=== PATIENT | male | born 1940 | race Caucasian/White ===

== ENCOUNTER 2020-03-22 14:34 | Inpatient (IN) ==
[2020-03-22 15:15] LABS: Basophils % 0.4 % (0.0-0.8); Eosinophils # 0.2 10*3/uL (0.0-0.87); Eosinophils % 4.5 % (0.00-10.9); Hematocrit 40.2 VOL% (42.0-52.0); Hemoglobin 12.2 GM/DL (14.0-18.0); Immature Granulocytes % 0.4 %; Immature Granulocytes Absolute 0.02 #; Lymphocytes # 0.7 10*3/uL (1.4-4.0); Mean Corpuscular HGB Conc 30.3 GM/DL (32-36); Mean Corpuscular Volume 98.3 FL (87-102); Mean Platelet Volume 12.6 FL (9.6-12.0); Monocytes % 8.3 % (1.7-12.7); Neutrophils % 72.4 % (38.7-73.9); Platelet Count 76 T/CUMM (130-400); Red Blood Count 4.09 MC/CUMM (3.8-5.5); Red Cell Distribution Width 13.3 % (9.3-17.3); White Blood Count 4.9 T/CUMM (4-12)
[2020-03-22 15:24] LABS: INR 1.1; PT Patient Result 11.4 SECS (9.8-11.9)
[2020-03-22 15:33] LABS: Albumin 3.8 G/DL (3.4-5.0); Bilirubin,Total 0.8 MG/DL (0.2-1.0); Calcium 9.3 MG/DL (8.5-10.1); Osmolality,Calculated 289.1 MOS/KG (273-304); Total Protein 6.8 G/DL (6.4-8.3)
[2020-03-22] MEDS ORDERED: ACETAMINOPHEN 325 MG TABLET PO PRN (16:40)
[2020-03-22] MEDS ORDERED: ONDANSETRON 4 MG/2 ML VIAL IV PRN (16:40)
[2020-03-22] MEDS ORDERED: ALBUTEROL 2.5 MG/3 ML NEB RESP TX PRN (16:42)
[2020-03-22] MEDS: SIMVASTATIN 80 MG TABLET PO SCH (21:40)
[2020-03-22] MEDS: SERTRALINE 50 MG TABLET PO SCH (21:40)
[2020-03-22] MEDS: carvediloL 6.25 MG TABLET PO SCH (21:40)
[2020-03-22] MEDS: DOCUSATE SODIUM 100 MG CAPSULE PO SCH (21:40)
[2020-03-22] MEDS: amLODIPine 10 MG TABLET PO SCH (21:40)
[2020-03-22] MEDS: ASPIRIN EC 325 MG TABLET PO SCH (21:40)
[2020-03-22] MEDS: CARBIDOPA/LEVODOPA 25-100 MG TABLET PO SCH (21:41)
[2020-03-23 06:41] LABS: Basophils % 0.7 % (0.0-0.8); Eosinophils # 0.1 10*3/uL (0.0-0.87); Eosinophils % 3.3 % (0.00-10.9); Hematocrit 39.1 VOL% (42.0-52.0); Immature Granulocytes % 0.5 %; Immature Granulocytes Absolute 0.02 #; Lymphocytes # 0.8 10*3/uL (1.4-4.0); Lymphocytes % 19.4 % (21.2-54.2); Mean Corpuscular HGB Conc 30.7 GM/DL (32-36); Mean Corpuscular Volume 97.5 FL (87-102); Mean Platelet Volume 12.8 FL (9.6-12.0); Monocytes % 9.7 % (1.7-12.7); Neutrophils % 66.4 % (38.7-73.9); Platelet Count 60 T/CUMM (130-400); Red Blood Count 4.01 MC/CUMM (3.8-5.5); Red Cell Distribution Width 13.2 % (9.3-17.3); White Blood Count 4.2 T/CUMM (4-12)
[2020-03-23 06:59] LABS: Albumin 3.5 G/DL (3.4-5.0); Calcium 9.7 MG/DL (8.5-10.1); Osmolality,Calculated 288.3 MOS/KG (273-304); Potassium 4.7 MMOL/L (3.5-5.1); Total Protein 6.6 G/DL (6.4-8.3)
[2020-03-23] MEDS: FUROSEMIDE 20 MG TABLET PO SCH (08:51)
[2020-03-23] MEDS: CLOPIDOGREL 75 MG TABLET PO SCH (08:51)
[2020-03-23] MEDS: DOCUSATE SODIUM 100 MG CAPSULE PO SCH ×3 (08:51→20:56)
[2020-03-23] MEDS: carvediloL 6.25 MG TABLET PO SCH (08:51)
[2020-03-23] MEDS: PANTOPRAZOLE 40 MG TABLET PO SCH (08:51)
[2020-03-23] MEDS ORDERED: PANTOPRAZOLE 40 MG TABLET PO SCH (09:00)
[2020-03-23] MEDS: ENALAPRIL 20 MG TABLET PO SCH (09:05)
[2020-03-23] MEDS: SIMVASTATIN 80 MG TABLET PO SCH (20:56)
[2020-03-23] MEDS: SERTRALINE 50 MG TABLET PO SCH (20:56)
[2020-03-23] MEDS: amLODIPine 10 MG TABLET PO SCH (20:56)
[2020-03-23] MEDS: CARBIDOPA/LEVODOPA 25-100 MG TABLET PO SCH (20:56)
[2020-03-23] MEDS: ASPIRIN EC 325 MG TABLET PO SCH (20:56)
[2020-03-24] MEDS: PANTOPRAZOLE 40 MG TABLET PO SCH (08:40)
[2020-03-24] MEDS: DOCUSATE SODIUM 100 MG CAPSULE PO SCH ×2 (08:40→20:35)
[2020-03-24] MEDS: FUROSEMIDE 20 MG TABLET PO SCH (08:40)
[2020-03-24] MEDS: CLOPIDOGREL 75 MG TABLET PO SCH (08:40)
[2020-03-24] MEDS: ENALAPRIL 20 MG TABLET PO SCH (08:40)
[2020-03-24] MEDS ORDERED: CYANOCOBALAMIN 1000 MCG/1 ML VIAL IM SCH (09:00)
[2020-03-24] MEDS: SERTRALINE 50 MG TABLET PO SCH (20:35)
[2020-03-24] MEDS: ASPIRIN EC 325 MG TABLET PO SCH (20:35)
[2020-03-24] MEDS: SIMVASTATIN 80 MG TABLET PO SCH (20:35)
[2020-03-24] MEDS: CARBIDOPA/LEVODOPA 25-100 MG TABLET PO SCH (20:35)
[2020-03-24] MEDS: amLODIPine 10 MG TABLET PO SCH (20:35)
[2020-03-25 05:48] LABS: Basophils % 0.4 % (0.0-0.8); Eosinophils # 0.2 10*3/uL (0.0-0.87); Eosinophils % 4.4 % (0.00-10.9); Hematocrit 39.3 VOL% (42.0-52.0); Immature Granulocytes % 0.4 %; Immature Granulocytes Absolute 0.02 #; Lymphocytes % 19.1 % (21.2-54.2); Mean Corpuscular HGB Conc 30.5 GM/DL (32-36); Mean Corpuscular Volume 98.3 FL (87-102); Mean Platelet Volume 12.5 FL (9.6-12.0); Monocytes % 8.7 % (1.7-12.7); Platelet Count 68 T/CUMM (130-400); Red Cell Distribution Width 13.4 % (9.3-17.3)
[2020-03-25 06:08] LABS: Calcium 9.4 MG/DL (8.5-10.1); Osmolality,Calculated 283.4 MOS/KG (273-304)
[2020-03-25 06:20] LABS: Free T4 (Free Thyroxine) 0.85 NG/DL (0.76-1.46); Thyroid Stimulating Hormone 1.52 uIU/ml (0.358-3.74)
[2020-03-25 08:17] VITALS: BP 137/81
[2020-03-25] MEDS: DOCUSATE SODIUM 100 MG CAPSULE PO SCH (09:16)
[2020-03-25] MEDS: CLOPIDOGREL 75 MG TABLET PO SCH (09:16)
[2020-03-25] MEDS: ENALAPRIL 20 MG TABLET PO SCH (09:16)
[2020-03-25] MEDS: PANTOPRAZOLE 40 MG TABLET PO SCH (09:16)
[2020-03-25] MEDS: FUROSEMIDE 20 MG TABLET PO SCH (09:17)
== END 2020-03-25 11:35 | disposition home or self-care (01) | DRG 309 ==
LOC: N.ED 14:34 → N.EDINP 14:34 → N.TELEN 18:19
PROVIDERS: ADMIT Internal Medicine; ATTEND Internal Medicine

== ENCOUNTER 2020-04-04 17:51 | Inpatient (IN) ==
[2020-04-04 18:44] LABS: PT Patient Result 11.1 SECS (9.8-11.9)
[2020-04-04 18:47] LABS: Basophils % 0.5 % (0.0-0.8); Eosinophils # 0.1 10*3/uL (0.0-0.87); Eosinophils % 1.4 % (0.00-10.9); Hematocrit 39.2 VOL% (42.0-52.0); Hemoglobin 12.2 GM/DL (14.0-18.0); Immature Granulocytes % 0.4 %; Immature Granulocytes Absolute 0.02 #; Lymphocytes # 0.5 10*3/uL (1.4-4.0); Lymphocytes % 8.4 % (21.2-54.2); Mean Corpuscular HGB Conc 31.1 GM/DL (32-36); Mean Corpuscular Volume 95.1 FL (87-102); Mean Platelet Volume 13.1 FL (9.6-12.0); Monocytes % 6.3 % (1.7-12.7); Platelet Count 89 T/CUMM (130-400); Red Blood Count 4.12 MC/CUMM (3.8-5.5); Red Cell Distribution Width 13.3 % (9.3-17.3); White Blood Count 5.6 T/CUMM (4-12)
[2020-04-04 18:56] LABS: Albumin 3.5 G/DL (3.4-5.0); Bilirubin,Total 0.7 MG/DL (0.2-1.0); Calcium 9.6 MG/DL (8.5-10.1); Osmolality,Calculated 284.4 MOS/KG (273-304); Potassium 5.4 MMOL/L (3.5-5.1); Total Protein 6.9 G/DL (6.4-8.3)
[2020-04-04] MEDS ORDERED: ONDANSETRON 4 MG/2 ML VIAL IV PRN (20:42)
[2020-04-04] MEDS: DOCUSATE SODIUM 100 MG CAPSULE PO SCH (23:26)
[2020-04-05] MEDS: ACETAMINOPHEN 325 MG TABLET PO PRN ×2 (01:44→20:23)
[2020-04-05 02:46] LABS: Basophils % 0.4 % (0.0-0.8); Eosinophils # 0.1 10*3/uL (0.0-0.87); Eosinophils % 2.1 % (0.00-10.9); Hematocrit 35.5 VOL% (42.0-52.0); Hemoglobin 11.2 GM/DL (14.0-18.0); Immature Granulocytes % 0.6 %; Immature Granulocytes Absolute 0.03 #; Lymphocytes # 0.7 10*3/uL (1.4-4.0); Lymphocytes % 12.9 % (21.2-54.2); Mean Corpuscular HGB Conc 31.5 GM/DL (32-36); Mean Corpuscular Volume 95.2 FL (87-102); Mean Platelet Volume 11.9 FL (9.6-12.0); Monocytes % 9.7 % (1.7-12.7); Neutrophils % 74.3 % (38.7-73.9); Platelet Count 82 T/CUMM (130-400); Red Blood Count 3.73 MC/CUMM (3.8-5.5); Red Cell Distribution Width 13.2 % (9.3-17.3); White Blood Count 5.4 T/CUMM (4-12)
[2020-04-05 03:01] LABS: Albumin 3.3 G/DL (3.4-5.0); Bilirubin,Total 0.7 MG/DL (0.2-1.0); Calcium 9.3 MG/DL (8.5-10.1); Osmolality,Calculated 290.1 MOS/KG (273-304); Potassium 4.4 MMOL/L (3.5-5.1); Total Protein 6.5 G/DL (6.4-8.3)
[2020-04-05] MEDS: DOCUSATE SODIUM 100 MG CAPSULE PO SCH ×2 (09:00→20:20)
[2020-04-05] MEDS ORDERED: NITROGLYCERIN SL 0.4 MG TABLET SL PRN (09:58)
[2020-04-05] MEDS: PANTOPRAZOLE 40 MG TABLET PO SCH (13:25)
[2020-04-05] MEDS: HYDROXYCHLOROQUINE 200 MG TABLET PO SCH (16:20)
[2020-04-05] MEDS: TAMSULOSIN 0.4 MG CAPSULE PO SCH (20:20)
[2020-04-05] MEDS: amLODIPine 10 MG TABLET PO SCH (20:21)
[2020-04-05] MEDS: CARBIDOPA/LEVODOPA 25-100 MG TABLET PO SCH (20:21)
[2020-04-05] MEDS: MAGNESIUM CHLORIDE 64 MG TABLET PO SCH (20:22)
[2020-04-05] MEDS: POTASSIUM CITRATE 10 MEQ TABLET PO SCH (20:22)
[2020-04-05] MEDS: SIMVASTATIN 80 MG TABLET PO SCH (20:22)
[2020-04-05] MEDS: SERTRALINE 50 MG TABLET PO SCH (20:23)
[2020-04-05] MEDS: diphenhydrAMINE CAP 25 MG CAPSULE PO PRN (20:25)
[2020-04-05] MEDS: NON-FORMULARY MEDICATION (Glucosam-Chon-Msm1-C-Mang-Bosw [Osteo Bi-Flex Triple Strength] 7 PO SCH (21:43)
[2020-04-06] MEDS: HYDROXYCHLOROQUINE 200 MG TABLET PO SCH ×2 (10:16→16:39)
[2020-04-06] MEDS: FINASTERIDE 5 MG TABLET PO SCH (10:17)
[2020-04-06] MEDS: DOCUSATE SODIUM 100 MG CAPSULE PO SCH ×2 (10:17→21:22)
[2020-04-06] MEDS: FUROSEMIDE 20 MG TABLET PO SCH (10:17)
[2020-04-06] MEDS: POTASSIUM CITRATE 10 MEQ TABLET PO SCH ×2 (10:17→21:24)
[2020-04-06] MEDS: TAMSULOSIN 0.4 MG CAPSULE PO SCH ×2 (10:17→21:22)
[2020-04-06] MEDS: ENALAPRIL 20 MG TABLET PO SCH (10:17)
[2020-04-06] MEDS: MAGNESIUM CHLORIDE 64 MG TABLET PO SCH ×2 (10:17→21:24)
[2020-04-06] MEDS: PANTOPRAZOLE 40 MG TABLET PO SCH ×2 (10:18→10:21)
[2020-04-06] MEDS: ASCORBIC ACID 500 MG TABLET PO SCH (10:18)
[2020-04-06] MEDS: [UNRECOGNIZED DRUG - OTHER] PO SCH (10:21)
[2020-04-06] MEDS: NON-FORMULARY MEDICATION (Glucosam-Chon-Msm1-C-Mang-Bosw [Osteo Bi-Flex Triple Strength] 7 PO SCH ×2 (10:21→21:23)
[2020-04-06] MEDS: amLODIPine 10 MG TABLET PO SCH (21:23)
[2020-04-06] MEDS: SERTRALINE 50 MG TABLET PO SCH (21:24)
[2020-04-06] MEDS: SIMVASTATIN 80 MG TABLET PO SCH (21:24)
[2020-04-06] MEDS: CARBIDOPA/LEVODOPA 25-100 MG TABLET PO SCH (21:24)
[2020-04-06] MEDS: ACETAMINOPHEN 325 MG TABLET PO PRN (21:25)
[2020-04-06] MEDS: diphenhydrAMINE CAP 25 MG CAPSULE PO PRN (21:25)
[2020-04-07 05:53] LABS: Basophils % 0.5 % (0.0-0.8); Eosinophils # 0.2 10*3/uL (0.0-0.87); Hematocrit 36.1 VOL% (42.0-52.0); Hemoglobin 11.2 GM/DL (14.0-18.0); Immature Granulocytes % 0.5 %; Immature Granulocytes Absolute 0.02 #; Lymphocytes # 0.8 10*3/uL (1.4-4.0); Lymphocytes % 18.9 % (21.2-54.2); Mean Corpuscular Volume 96.8 FL (87-102); Mean Platelet Volume 12.2 FL (9.6-12.0); Monocytes % 8.2 % (1.7-12.7); Neutrophils % 66.9 % (38.7-73.9); Platelet Count 77 T/CUMM (130-400); Red Blood Count 3.73 MC/CUMM (3.8-5.5); Red Cell Distribution Width 13.5 % (9.3-17.3)
[2020-04-07 06:03] LABS: Calcium 9.8 MG/DL (8.5-10.1); Osmolality,Calculated 283.4 MOS/KG (273-304); Potassium 4.2 MMOL/L (3.5-5.1)
[2020-04-07 06:36] LABS: Platelet Estimate Decreased
[2020-04-07 06:37] LABS: Hypochromasia Slight
[2020-04-07] MEDS ORDERED: CYANOCOBALAMIN 1000 MCG/1 ML VIAL IM SCH (09:00)
[2020-04-07] MEDS: DOCUSATE SODIUM 100 MG CAPSULE PO SCH ×2 (11:23→21:56)
[2020-04-07] MEDS: FINASTERIDE 5 MG TABLET PO SCH (11:23)
[2020-04-07] MEDS: MAGNESIUM CHLORIDE 64 MG TABLET PO SCH ×3 (11:23→22:02)
[2020-04-07] MEDS: ASCORBIC ACID 500 MG TABLET PO SCH (11:24)
[2020-04-07] MEDS: ENALAPRIL 20 MG TABLET PO SCH (11:24)
[2020-04-07] MEDS: FUROSEMIDE 20 MG TABLET PO SCH (11:24)
[2020-04-07] MEDS: TAMSULOSIN 0.4 MG CAPSULE PO SCH ×2 (11:24→21:57)
[2020-04-07] MEDS: POTASSIUM CITRATE 10 MEQ TABLET PO SCH ×2 (11:25→21:58)
[2020-04-07] MEDS: HYDROXYCHLOROQUINE 200 MG TABLET PO SCH ×2 (11:25→16:17)
[2020-04-07] MEDS: PANTOPRAZOLE 40 MG TABLET PO SCH ×2 (11:25→11:48)
[2020-04-07] MEDS: [UNRECOGNIZED DRUG - OTHER] PO SCH (11:47)
[2020-04-07] MEDS: NON-FORMULARY MEDICATION (Glucosam-Chon-Msm1-C-Mang-Bosw [Osteo Bi-Flex Triple Strength] 7 PO SCH ×2 (11:47→21:57)
[2020-04-07] MEDS: ACETAMINOPHEN 325 MG TABLET PO PRN ×2 (14:05→21:56)
[2020-04-07] MEDS: SERTRALINE 50 MG TABLET PO SCH (21:56)
[2020-04-07] MEDS: amLODIPine 10 MG TABLET PO SCH (21:57)
[2020-04-07] MEDS: diphenhydrAMINE CAP 25 MG CAPSULE PO PRN (21:57)
[2020-04-07] MEDS: SIMVASTATIN 80 MG TABLET PO SCH (21:58)
[2020-04-07] MEDS: CARBIDOPA/LEVODOPA 25-100 MG TABLET PO SCH (21:58)
[2020-04-08 06:45] LABS: Basophils % 0.5 % (0.0-0.8); Eosinophils # 0.2 10*3/uL (0.0-0.87); Eosinophils % 3.6 % (0.00-10.9); Hematocrit 36.2 VOL% (42.0-52.0); Hemoglobin 11.4 GM/DL (14.0-18.0); Immature Granulocytes % 0.5 %; Immature Granulocytes Absolute 0.02 #; Lymphocytes # 0.7 10*3/uL (1.4-4.0); Lymphocytes % 16.7 % (21.2-54.2); Mean Corpuscular HGB Conc 31.5 GM/DL (32-36); Mean Corpuscular Volume 95.5 FL (87-102); Mean Platelet Volume 11.9 FL (9.6-12.0); Monocytes % 8.1 % (1.7-12.7); Neutrophils % 70.6 % (38.7-73.9); Platelet Count 73 T/CUMM (130-400); Red Blood Count 3.79 MC/CUMM (3.8-5.5); Red Cell Distribution Width 13.3 % (9.3-17.3); White Blood Count 4.4 T/CUMM (4-12)
[2020-04-08 07:08] LABS: Anisocytosis Slight; Platelet Estimate Decreased
[2020-04-08 07:09] LABS: Macrocytosis Slight
[2020-04-08 07:13] LABS: Calcium 9.3 MG/DL (8.5-10.1); Osmolality,Calculated 285.3 MOS/KG (273-304); Potassium 4.5 MMOL/L (3.5-5.1)
[2020-04-08] MEDS: MAGNESIUM CHLORIDE 64 MG TABLET PO SCH ×2 (09:18→20:42)
[2020-04-08] MEDS: HYDROXYCHLOROQUINE 200 MG TABLET PO SCH ×2 (09:18→16:09)
[2020-04-08] MEDS: ACETAMINOPHEN 325 MG TABLET PO PRN ×2 (09:19→20:42)
[2020-04-08] MEDS: ENALAPRIL 20 MG TABLET PO SCH (09:19)
[2020-04-08] MEDS: DOCUSATE SODIUM 100 MG CAPSULE PO SCH ×2 (09:19→20:43)
[2020-04-08] MEDS: ASCORBIC ACID 500 MG TABLET PO SCH (09:19)
[2020-04-08] MEDS: PANTOPRAZOLE 40 MG TABLET PO SCH ×2 (09:19→09:24)
[2020-04-08] MEDS: FUROSEMIDE 20 MG TABLET PO SCH (09:19)
[2020-04-08] MEDS: POTASSIUM CITRATE 10 MEQ TABLET PO SCH ×2 (09:19→20:43)
[2020-04-08] MEDS: FINASTERIDE 5 MG TABLET PO SCH (09:20)
[2020-04-08] MEDS: TAMSULOSIN 0.4 MG CAPSULE PO SCH ×2 (09:20→20:43)
[2020-04-08] MEDS: [UNRECOGNIZED DRUG - OTHER] PO SCH (09:24)
[2020-04-08] MEDS: NON-FORMULARY MEDICATION (Glucosam-Chon-Msm1-C-Mang-Bosw [Osteo Bi-Flex Triple Strength] 7 PO SCH ×2 (09:24→20:44)
[2020-04-08] MEDS: SERTRALINE 50 MG TABLET PO SCH (20:43)
[2020-04-08] MEDS: diphenhydrAMINE CAP 25 MG CAPSULE PO PRN (20:43)
[2020-04-08] MEDS: amLODIPine 10 MG TABLET PO SCH (20:43)
[2020-04-08] MEDS: SIMVASTATIN 80 MG TABLET PO SCH (20:43)
[2020-04-08] MEDS: CARBIDOPA/LEVODOPA 25-100 MG TABLET PO SCH (20:43)
[2020-04-09 05:37] LABS: Basophils % 0.6 % (0.0-0.8); Eosinophils # 0.2 10*3/uL (0.0-0.87); Eosinophils % 3.5 % (0.00-10.9); Hematocrit 35.9 VOL% (42.0-52.0); Immature Granulocytes % 0.4 %; Immature Granulocytes Absolute 0.02 #; Lymphocytes # 0.8 10*3/uL (1.4-4.0); Lymphocytes % 15.1 % (21.2-54.2); Mean Corpuscular HGB Conc 30.6 GM/DL (32-36); Mean Corpuscular Volume 96.8 FL (87-102); Mean Platelet Volume 12.5 FL (9.6-12.0); Monocytes % 8.6 % (1.7-12.7); Neutrophils % 71.8 % (38.7-73.9); Platelet Count 83 T/CUMM (130-400); Red Blood Count 3.71 MC/CUMM (3.8-5.5); Red Cell Distribution Width 13.3 % (9.3-17.3); White Blood Count 5.4 T/CUMM (4-12)
[2020-04-09 06:00] LABS: Calcium 10.1 MG/DL (8.5-10.1); Osmolality,Calculated 279.7 MOS/KG (273-304); Potassium 4.5 MMOL/L (3.5-5.1)
[2020-04-09] MEDS ORDERED: ceFAZolin 1,000 MG VIAL IRRIG ONE (06:00)
[2020-04-09] MEDS ORDERED: ceFAZolin 1,000 MG in SYRINGE 1 EACH IV ONE (06:00)
[2020-04-09 06:01] LABS: Anisocytosis 1+; Ovalocytes Few; Platelet Estimate Decreased
[2020-04-09 06:02] LABS: Macrocytosis Slight
[2020-04-09] MEDS ORDERED: fentaNYL 100 MCG/2 ML VIAL ONE (07:09)
[2020-04-09] MEDS ORDERED: ceFAZolin 1,000 MG VIAL ONE (07:22)
[2020-04-09] MEDS ORDERED: LIDOCAINE 1% 20 ML VIAL ONE (07:22)
[2020-04-09] MEDS ORDERED: TISSUE ADHESIVE 1 EACH APPLICATOR TOP ONE (07:22)
[2020-04-09] MEDS: ALBUTEROL 2.5 MG/3 ML NEB RESP TX PRN (10:23)
[2020-04-09] MEDS ORDERED: PHENYLEPHRINE 1 MG/10 ML SYRINGE IV ONE (10:39)
[2020-04-09] MEDS ORDERED: LIDOCAINE 2% 5 ML VIAL ONE (10:39)
[2020-04-09] MEDS ORDERED: propofoL 200 MG/20 ML VIAL IV ONE (10:39)
[2020-04-09] MEDS ORDERED: ONDANSETRON 4 MG/2 ML VIAL ONE (10:39)
[2020-04-09] MEDS ORDERED: SEVOFLURANE 1 UNIT/15 MINUTE INH ONE (10:40)
[2020-04-09] MEDS ORDERED: ETOMIDATE 40 MG/20 ML VIAL IV ONE (10:40)
[2020-04-09] MEDS: SODIUM CHLORIDE 0.9% 1,000 ML IV SCH ×2 (11:01→11:02)
[2020-04-09] MEDS: NON-FORMULARY MEDICATION (Glucosam-Chon-Msm1-C-Mang-Bosw [Osteo Bi-Flex Triple Strength] 7 PO SCH ×2 (11:02→20:46)
[2020-04-09] MEDS: [UNRECOGNIZED DRUG - OTHER] PO SCH (11:02)
[2020-04-09] MEDS: FINASTERIDE 5 MG TABLET PO SCH (11:10)
[2020-04-09] MEDS: TAMSULOSIN 0.4 MG CAPSULE PO SCH ×2 (11:10→20:45)
[2020-04-09] MEDS: ASCORBIC ACID 500 MG TABLET PO SCH (11:10)
[2020-04-09] MEDS: FUROSEMIDE 20 MG TABLET PO SCH (11:10)
[2020-04-09] MEDS: DOCUSATE SODIUM 100 MG CAPSULE PO SCH ×2 (11:10→20:41)
[2020-04-09] MEDS: POTASSIUM CITRATE 10 MEQ TABLET PO SCH ×2 (11:10→20:44)
[2020-04-09] MEDS: MAGNESIUM CHLORIDE 64 MG TABLET PO SCH ×2 (11:10→20:42)
[2020-04-09] MEDS: PANTOPRAZOLE 40 MG TABLET PO SCH ×2 (11:10→11:24)
[2020-04-09] MEDS: HYDROXYCHLOROQUINE 200 MG TABLET PO SCH ×2 (11:10→16:31)
[2020-04-09] MEDS: ENALAPRIL 20 MG TABLET PO SCH (11:11)
[2020-04-09] MEDS: SIMVASTATIN 80 MG TABLET PO SCH (20:42)
[2020-04-09] MEDS: SERTRALINE 50 MG TABLET PO SCH (20:42)
[2020-04-09] MEDS: CARBIDOPA/LEVODOPA 25-100 MG TABLET PO SCH (20:43)
[2020-04-09] MEDS: ACETAMINOPHEN 325 MG TABLET PO PRN (20:43)
[2020-04-09] MEDS: amLODIPine 10 MG TABLET PO SCH (20:43)
[2020-04-09] MEDS: diphenhydrAMINE CAP 25 MG CAPSULE PO PRN (20:45)
[2020-04-10 05:54] LABS: Basophils % 0.5 % (0.0-0.8); Eosinophils # 0.1 10*3/uL (0.0-0.87); Eosinophils % 1.7 % (0.00-10.9); Hematocrit 34.2 VOL% (42.0-52.0); Hemoglobin 10.6 GM/DL (14.0-18.0); Immature Granulocytes % 0.5 %; Immature Granulocytes Absolute 0.03 #; Lymphocytes # 0.6 10*3/uL (1.4-4.0); Lymphocytes % 9.7 % (21.2-54.2); Mean Corpuscular Volume 96.9 FL (87-102); Mean Platelet Volume 12.1 FL (9.6-12.0); Monocytes % 8.3 % (1.7-12.7); Neutrophils % 79.3 % (38.7-73.9); Platelet Count 68 T/CUMM (130-400); Red Blood Count 3.53 MC/CUMM (3.8-5.5); Red Cell Distribution Width 13.6 % (9.3-17.3); White Blood Count 6.6 T/CUMM (4-12)
[2020-04-10 06:13] LABS: Hypochromasia 1+; Microcytosis 1+; Platelet Estimate Decreased
[2020-04-10 06:29] LABS: Calcium 9.2 MG/DL (8.5-10.1); Osmolality,Calculated 283.4 MOS/KG (273-304); Potassium 4.6 MMOL/L (3.5-5.1)
[2020-04-10] MEDS: ALBUTEROL 2.5 MG/3 ML NEB RESP TX PRN (07:45)
[2020-04-10] MEDS ORDERED: ALBUTEROL/IPRATROPIUM 3 ML NEB RESP TX PRN (08:24)
[2020-04-10] MEDS: ALBUTEROL/IPRATROPIUM 3 ML NEB RESP TX SCH ×3 (08:39→19:31)
[2020-04-10] MEDS: methylPREDNISolone SOD SUC 40 MG/1 ML VIAL IV SCH ×2 (09:43→16:55)
[2020-04-10] MEDS: FINASTERIDE 5 MG TABLET PO SCH (09:44)
[2020-04-10] MEDS: FUROSEMIDE 40 MG TABLET PO SCH (09:44)
[2020-04-10] MEDS: TAMSULOSIN 0.4 MG CAPSULE PO SCH ×2 (09:44→21:09)
[2020-04-10] MEDS: ENALAPRIL 20 MG TABLET PO SCH (09:44)
[2020-04-10] MEDS: MAGNESIUM CHLORIDE 64 MG TABLET PO SCH ×2 (09:44→21:08)
[2020-04-10] MEDS: ASCORBIC ACID 500 MG TABLET PO SCH (09:44)
[2020-04-10] MEDS: POTASSIUM CITRATE 10 MEQ TABLET PO SCH ×2 (09:44→21:11)
[2020-04-10] MEDS: HYDROXYCHLOROQUINE 200 MG TABLET PO SCH ×2 (09:44→16:55)
[2020-04-10] MEDS: DOCUSATE SODIUM 100 MG CAPSULE PO SCH ×2 (09:45→21:08)
[2020-04-10] MEDS: PANTOPRAZOLE 40 MG TABLET PO SCH (09:45)
[2020-04-10] MEDS: SODIUM CHLORIDE 0.9% 1,000 ML IV SCH ×2 (10:02)
[2020-04-10] MEDS: NON-FORMULARY MEDICATION (Glucosam-Chon-Msm1-C-Mang-Bosw [Osteo Bi-Flex Triple Strength] 7 PO SCH ×2 (10:04→21:12)
[2020-04-10] MEDS: [UNRECOGNIZED DRUG - OTHER] PO SCH (10:04)
[2020-04-10] MEDS ORDERED: ASPIRIN EC 325 MG TABLET PO SCH (21:00)
[2020-04-10] MEDS: SIMVASTATIN 80 MG TABLET PO SCH (21:09)
[2020-04-10] MEDS: SERTRALINE 50 MG TABLET PO SCH (21:09)
[2020-04-10] MEDS: diphenhydrAMINE CAP 25 MG CAPSULE PO PRN (21:10)
[2020-04-10] MEDS: ACETAMINOPHEN 325 MG TABLET PO PRN (21:10)
[2020-04-10] MEDS: CARBIDOPA/LEVODOPA 25-100 MG TABLET PO SCH (21:11)
[2020-04-10] MEDS: amLODIPine 10 MG TABLET PO SCH (21:11)
[2020-04-11] MEDS: methylPREDNISolone SOD SUC 40 MG/1 ML VIAL IV SCH (00:07)
[2020-04-11] MEDS: SODIUM CHLORIDE 0.9% 1,000 ML IV SCH ×2 (05:11)
[2020-04-11 07:05] LABS: Alanine Aminotransferase < 6 U/L (16-61); Albumin 3.1 G/DL (3.4-5.0); Alkaline Phosphatase 54 U/L (45-117); Aspartate Amino Transferase 9 U/L (0-37); Blood Urea Nitrogen 33 MG/DL (7-18); Calcium 9.8 MG/DL (8.5-10.1); Carbon Dioxide 22 MMOL/L (21-32); Estimated Glom Filtration Rate 28 ML/MIN; Glucose 153 MG/DL (74-106); Osmolality,Calculated 288.4 MOS/KG (273-304); Potassium 5.4 MMOL/L (3.5-5.1); Sodium 140 MMOL/L (136-145); Total Protein 6.7 G/DL (6.4-8.3)
[2020-04-11] MEDS: ALBUTEROL/IPRATROPIUM 3 ML NEB RESP TX SCH (07:15)
[2020-04-11 07:30] VITALS: BP 130/70
[2020-04-11] MEDS: HYDROXYCHLOROQUINE 200 MG TABLET PO SCH (11:07)
[2020-04-11] MEDS: [UNRECOGNIZED DRUG - OTHER] PO SCH (11:15)
[2020-04-11] MEDS: PANTOPRAZOLE 40 MG TABLET PO SCH (11:15)
[2020-04-11] MEDS: FUROSEMIDE 40 MG TABLET PO SCH (11:15)
[2020-04-11] MEDS: MAGNESIUM CHLORIDE 64 MG TABLET PO SCH (11:15)
[2020-04-11] MEDS: TAMSULOSIN 0.4 MG CAPSULE PO SCH (11:15)
[2020-04-11] MEDS: NON-FORMULARY MEDICATION (Glucosam-Chon-Msm1-C-Mang-Bosw [Osteo Bi-Flex Triple Strength] 7 PO SCH (11:15)
[2020-04-11] MEDS: FINASTERIDE 5 MG TABLET PO SCH (11:15)
[2020-04-11] MEDS: ENALAPRIL 20 MG TABLET PO SCH (11:16)
[2020-04-11] MEDS: ASCORBIC ACID 500 MG TABLET PO SCH (11:16)
[2020-04-11] MEDS: POTASSIUM CITRATE 10 MEQ TABLET PO SCH (11:16)
[2020-04-11] MEDS: DOCUSATE SODIUM 100 MG CAPSULE PO SCH (11:17)
== END 2020-04-11 11:33 | disposition home or self-care (01) | DRG 227 ==
LOC: EDUNIT# → EDBD → N.ED 17:51 → N.EDINP 17:51 → N.TELES 21:54
PROVIDERS: ADMIT Internal Medicine; ATTEND Internal Medicine

== ENCOUNTER 2022-02-19 10:13 | Inpatient (IN) ==
[2022-02-19] MEDS ORDERED: ACETAMINOPHEN 325 MG TABLET PO PRN (10:55)
[2022-02-19] MEDS ORDERED: ONDANSETRON 4 MG/2 ML VIAL IV PRN (10:55)
[2022-02-19] MEDS ORDERED: FUROSEMIDE 40 MG/4 ML VIAL IV ONE (12:00)
[2022-02-19] MEDS ORDERED: LEVALBUTEROL 0.63 MG/3 ML NEB RESP TX PRN (13:09)
[2022-02-19] MEDS: ENOXAPARIN 30 MG/0.3 ML SYRINGE SUBCUT SCH (13:26)
[2022-02-19] MEDS ORDERED: NITROGLYCERIN SL 0.4 MG TABLET SL PRN (14:54)
[2022-02-19] MEDS: carvediloL 6.25 MG TABLET PO SCH (17:11)
[2022-02-19] MEDS: FUROSEMIDE 40 MG/4 ML VIAL IV SCH (17:11)
[2022-02-19] MEDS ORDERED: ALBUTEROL 2.5 MG/3 ML NEB RESP TX PRN (19:00)
[2022-02-19] MEDS: LEVALBUTEROL 0.63 MG/3 ML NEB RESP TX SCH (19:36)
[2022-02-19] MEDS: HYDROXYCHLOROQUINE 200 MG TABLET PO SCH (20:28)
[2022-02-19] MEDS: DOCUSATE SODIUM 100 MG CAPSULE PO SCH (20:28)
[2022-02-19] MEDS: TAMSULOSIN 0.4 MG CAPSULE PO SCH (20:28)
[2022-02-19] MEDS ORDERED: FINASTERIDE 5 MG TABLET PO SCH (21:00)
[2022-02-19] MEDS ORDERED: SERTRALINE 100 MG TABLET PO SCH (21:00)
[2022-02-19] MEDS ORDERED: CARBIDOPA/LEVODOPA 25-100 MG TABLET PO SCH (21:00)
[2022-02-20] MEDS: LEVALBUTEROL 0.63 MG/3 ML NEB RESP TX SCH ×3 (00:40→13:59)
[2022-02-20 04:27] LABS: Basophils % 0.3 % (0.0-0.8); Eosinophils # 0.2 10*3/uL (0.0-0.87); Eosinophils % 5.4 % (0.00-10.9); Hematocrit 32.5 VOL% (42.0-52.0); Hemoglobin 9.9 GM/DL (14.0-18.0); Immature Granulocytes % 0.5 %; Immature Granulocytes Absolute 0.02 #; Lymphocytes # 0.8 10*3/uL (1.4-4.0); Lymphocytes % 20.4 % (21.2-54.2); Mean Corpuscular HGB Conc 30.5 GM/DL (32-36); Mean Corpuscular Volume 93.1 FL (87-102); Mean Platelet Volume 12.3 FL (9.6-12.0); Monocytes # 0.4 10*3/uL (0.11-0.8); Monocytes % 8.9 % (1.7-12.7); Neutrophils % 64.5 % (38.7-73.9); Platelet Count 63 T/CUMM (130-400); Red Blood Count 3.49 MC/CUMM (3.8-5.5); Red Cell Distribution Width 15.4 % (9.3-17.3); White Blood Count 3.9 T/CUMM (4-12)
[2022-02-20 04:41] LABS: Calcium 9.2 MG/DL (8.5-10.1); Osmolality,Calculated 291.1 MOS/KG (273-304); Potassium 4.3 MMOL/L (3.5-5.1)
[2022-02-20 05:31] LABS: Anisocytosis 2+; Macrocytosis Slight; Ovalocytes Few; Platelet Estimate Decreased; Tear Drop Cells Few
[2022-02-20] MEDS ORDERED: ASPIRIN EC 81 MG TABLET PO SCH (09:00)
[2022-02-20] MEDS ORDERED: PANTOPRAZOLE 40 MG TABLET PO SCH (09:00)
[2022-02-20] MEDS ORDERED: CLOPIDOGREL 75 MG TABLET PO SCH (09:00)
[2022-02-20] MEDS ORDERED: ROSUVASTATIN 20 MG TABLET PO SCH (09:00)
[2022-02-20] MEDS ORDERED: CETIRIZINE 10 MG TABLET PO SCH (09:00)
[2022-02-20] MEDS ORDERED: amLODIPine 10 MG TABLET PO SCH (09:00)
[2022-02-20] MEDS: HYDROXYCHLOROQUINE 200 MG TABLET PO SCH (09:28)
[2022-02-20] MEDS: carvediloL 6.25 MG TABLET PO SCH (09:28)
[2022-02-20] MEDS: DOCUSATE SODIUM 100 MG CAPSULE PO SCH (09:28)
[2022-02-20] MEDS: FUROSEMIDE 40 MG/4 ML VIAL IV SCH (09:28)
[2022-02-20] MEDS: TAMSULOSIN 0.4 MG CAPSULE PO SCH (09:28)
[2022-02-20 12:15] VITALS: BP 128/79
[2022-02-20] MEDS: ENOXAPARIN 30 MG/0.3 ML SYRINGE SUBCUT SCH (13:12)
[2022-02-21] MEDS ORDERED: CLOPIDOGREL 75 MG TABLET PO SCH (09:00)
== END 2022-02-20 14:40 | disposition home or self-care (01) | DRG 291 ==
LOC: N.TELEN 11:36
PROVIDERS: ADMIT Internal Medicine; ATTEND Internal Medicine